=== PATIENT | female | born 1965 | race Hispanic/Latino ===

== ENCOUNTER 2024-01-05 10:51 | Emergency (ER) | payer BC, OTHER ==
[~2024-01-05] VITALS: Ht 160 cm; Wt 85.7 kg
[~2024-01-05 10:51] MED LIST: LEVOTHYROXINE75 MCG PO
[2024-01-05] MEDS ORDERED: LEVOTHYROXINE112 MCG PO (11:38)
[2024-01-05] MEDS ORDERED: PROBIOTIC1 EAC1 (11:38)
[2024-01-05] MEDS ORDERED: DOXYCYCLINE HY100 MG PO (11:38)
[2024-01-05] MEDS: SODIUM CHLORIDE 0.9% 1000ML 1,000 ML IV SCH (12:05)
[2024-01-05] MEDS: KETOROLAC TROMETHAMINE 30 MG/ML VIAL IV STA (12:05)
[2024-01-05] MEDS: ONDANSETRON HCL INJ 2MG/ML 2ML 2 MG/ML VIAL IV STA (12:05)
[2024-01-05] MEDS ORDERED: MEDROL4 MG PO (14:03)
[2024-01-05] MEDS ORDERED: CELEBREX200 MG PO (14:03)
[2024-01-05] MEDS ORDERED: ONDANSETRON ODT4 MG PO (14:04)
[2024-01-05] MEDS ORDERED: METHOCARBAMOL750 MG PO (14:05)
[2024-01-05 14:07] VITALS: O2SAT 97
== END 2024-01-05 14:17 | disposition home or self-care (01) ==
LOC: FSED 11:09
DX: R10.32 Left lower quadrant pain (principal); M54.16 Radiculopathy, lumbar region; R11.0 Nausea; L71.9 Rosacea, unspecified; E03.9 Hypothyroidism, unspecified
CPT/HCPCS: 74177; 80053; 81003; 85025; 99284